=== PATIENT | female | born 1955 | race Caucasian/White ===

== ENCOUNTER → 2016-08-16 | Outpatient (CLI) | payer OTHER ==
[~2016-08-16] MED LIST: CLR10 PO; CYAN100020 SC; HYDR200T5 PO; PRLSR20 PO
--- NOTE | 2016-08-16 12:52 | DIAGNOSTIC IMAGING REPORT ---
CT OF THE NECK WITHOUT CONTRAST CT DOSE: 410.41 mGycm CLINICAL HISTORY: Chronic esophagitis. Sore throat. TECHNIQUE: Axial images of the neck were obtained without IV contrast. COMPARISON STUDY: None. FINDINGS: Visualized portions of the intracranial contents are unremarkable on this unenhanced study. Visualized portions of the sinuses and mastoid air cells are clear. No parotid or submandibular mass is identified. The epiglottis is normal. Evaluation of the neck is suboptimal on this unenhanced exam but no enlarged lymph nodes or cervical masses are identified. No mucosal lesions are identified although these may be occult by CT. No suspicious osseous lesions are present. Few calcified granulomas within the right upper lobe are incidentally noted. There are multiple dental amalgams. IMPRESSION: Unremarkable unenhanced CT of the neck. Electronically signed by: Aditya Ramirez M.D. 08/16/2016 12:50 PM Dictated Date/Time: 08/16/2016 12:43 PM
== END | disposition home or self-care (01) ==
LOC: C.CTS 12:06
PROVIDERS: ATTEND Internal Medicine Pulmonary Disease
DX: J30.9 Allergic rhinitis, unspecified (principal); K22.70 Barrett's esophagus without dysplasia; K21.0 Gastro-esophageal reflux disease with esophagitis; R09.82 Postnasal drip; J02.9 Acute pharyngitis, unspecified

== ENCOUNTER → 2016-08-16 | Outpatient (CLI) | payer OTHER ==
[2016-08-16 13:15] LABS: BASO % 0.6 %; BASO ABS # 0.05 K/uL (0-0.2); COMPLETE YES; HEMATOCRIT 44.9 % (37-47); IG% 0.1 %; LYMPH % 25.9 %; LYMPH ABS # 2.24 K/uL (1.2-3.4); MEAN CELL VOLUME 97.8 fL (80-100); MEAN CORPUSCULAR HEMOGLOBIN 34.2 pg (25-34); MONO % 10.3 %; NEUT % 61.1 %; PLATELET COUNT 274 K/uL (130-400); RED BLOOD COUNT 4.59 M/uL (4.2-5.4); WHITE BLOOD COUNT 8.65 K/uL (4.8-10.8)
[2016-08-16 13:46] LABS: ALT/SGPT 31 U/L (12-78); AST/SGOT 33 U/L (15-37); BLOOD UREA NITROGEN 12 mg/dl (7-18); CALCIUM 9.7 mg/dl (8.5-10.1); CARBON DIOXIDE 26 mmol/L (21-32); CHLORIDE 104 mmol/L (98-107); GLUCOSE 80 mg/dl (70-99); POTASSIUM 3.7 mmol/L (3.5-5.1); SODIUM 140 mmol/L (136-145)
[2016-08-16 13:57] LABS: ALB/GLOB RATIO 1.3 (0.9-2); ALKALINE PHOSPHATASE 116 U/L (45-117)
== END | disposition home or self-care (01) ==
LOC: C.LAB1850 11:33
PROVIDERS: ATTEND Internal Medicine Pulmonary Disease
DX: Z11.59 Encounter for screening for other viral diseases (principal); J30.9 Allergic rhinitis, unspecified; K21.0 Gastro-esophageal reflux disease with esophagitis; R09.82 Postnasal drip; J02.9 Acute pharyngitis, unspecified

== ENCOUNTER → 2016-12-19 | Outpatient (CLI) | payer OTHER ==
--- NOTE | 2016-12-19 13:39 | MAMMOGRAPHY REPORT ---
BILATERAL DIGITAL SCREENING MAMMOGRAM WITH CAD: 12/19/2016 CLINICAL HISTORY: Routine screening. Patient has no complaints. TECHNIQUE: Current study was also evaluated with a Computer Aided Detection (CAD) system. Bilateral CC and MLO views were obtained. COMPARISON: Comparison is made to exams dated: 12/18/2015 mammogram, 12/14/2014 ultrasound, 12/14/2014 mammogram, 12/06/2014 mammogram, 08/02/2013 mammogram, and 07/30/2012 mammogram - [facility] nter. BREAST COMPOSITION: There are scattered areas of fibroglandular density in both breasts. FINDINGS: No suspicious masses, calcifications, or areas of architectural distortion are noted in ei ther breast. There has been no significant interval change compared to prior exams. Bilateral asymme tries and bilateral benign-appearing calcifications are not significantly changed. IMPRESSION: ACR BI-RADS CATEGORY 2: BENIGN There is no mammographic evidence of malignancy. A 1 year screening mammogram is recommended. The pa tient will receive written notification of the results. Approximately 10% of breast cancers are not detected with mammography. A negative mammographic report should not delay biopsy if a clinically suggestive mass is present. Gay Menezes M.D. /:12/19/2016 12:19:29 Product Development Intern: Khushi Lim, [facility] letter sent: Normal 1/2 BI-RADS Code: ACR BI-RADS Category 2: Benign
== END | disposition home or self-care (01) ==
LOC: C.MAMM 09:48
PROVIDERS: ATTEND Obstetrics & Gynecology
DX: Z12.31 Encounter for screening mammogram for malignant neoplasm of breast (principal)

== ENCOUNTER → 2017-08-26 | Day surgery (SDC) | payer OTHER ==
[2017-08-18 13:00] VITALS: Ht 167.6 cm; Wt 77.3 kg
[~2017-08-26] VITALS: Ht 167.6 cm; Wt 77.3 kg
[~2017-08-26] MED LIST changes: +CHOL20009 PO; -HYDR200T5 PO; +LIDOCAINE HCL 2% 2 ML VIAL (20MG/ML) ONE; +PROPOFOL IV EMULSION 10 MG/ML 20 ML VIAL IV ONE; +RANI1TAB75 PO; +SODIUM CHLORIDE 0.9% 500ML 500 ML IV ONE
--- NOTE | 2017-08-26 08:22 | Endo History and Physical ---
History & Physical Date of Service: Aug 26, 2017. Chief Complaint: Nausea and Abdominal pain Referring Physician: Dr. Mays History of Present Illness 62 yo CF who presents for EGD secondary to nausea and abdominal pain. Past Medical History Reflux, Cancer, High Cholesterol, Liver Disease Past Surgical History Hx Cardiac Surgery: No Hx Internal Defibrillator: No Hx Pacemaker: No Hx Abdominal Surgery: Yes (LAP SOFIA, D&C) Hx of Implantable Prosthesis: No Hx Post-Op Nausea and Vomiting: No Hx Cancer Surgery: Yes (TOBY BSO) Hx Thoracic Surgery: No Hx Orthopedic: Yes (L RCR) Hx Urinary Tract Surgery: No Family History Colon CA Social History Smoking Status: Never Smoker Hx Substance Use: No Hx Alcohol Use: Yes (RARELY) Allergies Coded Allergies: Penicillins (Verified Allergy, Unknown, RASH/ LONG TIME AGO, 08/26/17) Current Medications Reported Home Medications Medications Dose Route/Sig Max Daily Dose Days Date Category Vitamin D (Cholecalciferol) 2,000 Unit Tab 2 Tab PO QAM 08/18/17 Reported Ranitidine 75 (Ranitidine HCl) 75 Mg Tab 1 Tab PO BID PRN 08/18/17 Reported Claritin (Loratadine) 10 Mg Tab 10 Mg PO QAM 01/10/16 Reported Prilosec (Omeprazole) 20 Mg Capcr 20 Mg PO BID 03/02/15 Reported Vitamin B12 (Cyanocobalamin) 1,000 Mcg Tab 1 Dose SC MONTHLY 02/14/14 Reported Vital Signs Weight (Kilograms): 77.27 Height (Feet): 5 Height (Inches): 6 Physical Exam General Appearance: WD/WN, no apparent distress Respiratory/Chest: Auscultation: breath sounds normal Cardiovascular: Heart Auscultation: RRR Abdomen: Bowel Sounds: normal Inspection & Palpation: soft, non-distended, no tenderness, guarding & rebound Assessment and Plan Assessment: 62 yo CF who presents for EGD secondary to nausea and abdominal pain. Plan: Proceed with EGD.
--- NOTE | 2017-08-26 09:12 | Discharge Instructions ---
Endoscopy Patient Instructions Date / Procedure(s) Performed Aug 26, 2017. EGD Allergy Information Coded Allergies: Penicillins (Verified Allergy, Unknown, RASH/ LONG TIME AGO, 08/26/17) Discharge Date / Findings Aug 26, 2017. Gastritis s/p biopsies Hiatal hernia Medication Instructions 1) Stop Omeprazole 2) Start Pantoprazole 40mg by mouth each morning 1/2 hour prior to breakfast. 3) Start Ranitidine 150mg by mouth each evening prior to bedtime. 4) OK to resume all medications today as prescribed Reported Home Medications Medications Dose Route/Sig Max Daily Dose Days Date Category Vitamin D (Cholecalciferol) 2,000 Unit Tab 2 Tab PO QAM 08/18/17 Reported Ranitidine 75 (Ranitidine HCl) 75 Mg Tab 1 Tab PO BID PRN 08/18/17 Reported Claritin (Loratadine) 10 Mg Tab 10 Mg PO QAM 01/10/16 Reported Prilosec (Omeprazole) 20 Mg Capcr 20 Mg PO BID 03/02/15 Reported Vitamin B12 (Cyanocobalamin) 1,000 Mcg Tab 1 Dose SC MONTHLY 02/14/14 Reported Provider Instructions Activity Restrictions - No exercising or heavy lifting for 24 hours. - Do not drink alcohol the day of the procedure. - Do not drive a car or operate machinery until the day after the procedure. - Do not make any important decisions or sign important papers in 24 hours after the procedure. Following Day: - Return to full activity which may include returning to work/school. Diet Start your diet with liquids and light foods (jello, soup, juice, toast). Then eat your usual diet if not nauseated. Treatment For Common After Affects For mild abdominal pain, bloating, or excessive gas: - Rest - Eat lightly - Lie on right side Follow-Up Information Follow-up with Dr Mays as scheduled Anesthesia Information What You Should Know You have had a procedure that required some medicine to reduce anxiety and discomfort. This treatment is called moderate sedation. After receiving the treatment, you may be sleepy, but you will be able to breathe on your own. The effects of the treatment may last for several hours. Follow these instructions along with Activity/Diet recommendations noted above: * Do NOT do anything where dizziness or clumsiness would be dangerous. * Rest quietly at home today, then you can be up and about tomorrow. * Have a responsible person stay with you the rest of today. * You may have had an I.V. today. If so, you may take the dressing off later today. Recommendations Call your doctor if: * Trouble breathing * Continuous vomiting for more than 24 hours * Temperature above 101 degrees * Severe abdominal pain or bloating * Pain not relieved by pain medicine ordered * There is increased drainage or redness from any incision * A large amount of rectal bleeding greater than 2-3 tablespoons. (If you had a polyp/s removed or have hemorrhoids, a small amount of blood - from the rectum is to be expected.) * You have any unanswered questions or concerns. IN THE EVENT OF A SERIOUS EMERGENCY, GO TO THE NEAREST EMERGENCY ROOM Your discharge instructions were prepared by provider Ethan Rossi. Patient Instructions Signature Page Susanna Beckwith Patient (or Guardian) Signature/Date: I have read and understand the instructions given to me by my caregivers. Caregiver/RN/Doctor Signature/Date: The above-named patient and/or guardian has received patient instructions on this date. + Original Patient Signature Page (only) stays with chart. Please make copy for patient.
--- NOTE | 2017-08-26 09:19 | GI REPORT ---
Procedure Date: 08/26/2017 8:24 AM Procedure: Upper GI endoscopy Indications: Epigastric abdominal pain, Nausea Medicines: Monitored Anesthesia Care Complications: No immediate complications. Estimated Blood Loss: Estimated blood loss: none. Procedure: Pre-Anesthesia Assessment: - Prior to the procedure, a History and Physical was performed, and patient medications and allergies were reviewed. The patient's tolerance of previous anesthesia was also reviewed. The risks and benefits of the procedure and the sedation options and risks were discussed with the patient. All questions were answered, and informed consent was obtained. Prior Anticoagulants: The patient has taken no previous anticoagulant or antiplatelet agents. ASA Grade Assessment: II - A patient with mild systemic disease. After reviewing the risks and benefits, the patient was deemed in satisfactory condition to undergo the procedure. After obtaining informed consent, the endoscope was passed under direct vision. Throughout the procedure, the patient's blood pressure, pulse, and oxygen saturations were monitored continuously. The Scope was introduced through the mouth, and advanced to the second part of duodenum. The upper GI endoscopy was accomplished without difficulty. The patient tolerated the procedure well. Findings: The esophagus was normal. A small hiatal hernia was present. Localized mild inflammation characterized by erythema was found in the gastric antrum. Biopsies were taken with a cold forceps for histology. The examined duodenum was normal. Impression: - Normal esophagus. - Small hiatal hernia. - Gastritis. Biopsied. - Normal examined duodenum. Recommendation: - Resume previous diet. - Use Protonix (pantoprazole) 40 mg PO daily. - Start Ranitidine 150mg by mouth at bedtime. - Await pathology results. - Return to primary care physician as previously scheduled. Ethan Rossi DO 08/26/2017 9:18:53 AM This report has been signed electronically. Note Initiated On: 08/26/2017 8:24 AM I attest to the content of the Intraoperative Record and orders documented therein, exceptions below
[2017-08-26 09:43] VITALS: BP 139/74; PULSE 89; O2SAT 98
--- NOTE | 2017-08-26 10:06 | Anesthesiology Progress Note ---
Anesthesia Post Op Note Date & Time Aug 26, 2017 at 10:05 Vital Signs Vital Signs Past 12 Hours Date Time Temp Pulse Resp B/P (MAP) Pulse Ox O2 Delivery O2 Flow Rate FiO2 08/26/17 09:43 89 18 139/74 (95) 98 Room Air 08/26/17 09:28 93 18 139/78 (98) 98 Room Air 08/26/17 09:13 95 18 126/81 (96) 100 Room Air 08/26/17 08:24 36.3 100 18 153/85 (107) 98 Room Air Notes Mental Status: alert / awake / arousable, participated in evaluation Pt Amnestic to Procedure: Yes Nausea / Vomiting: adequately controlled Pain: adequately controlled Airway Patency, RR, SpO2: stable & adequate BP & HR: stable & adequate Hydration State: stable & adequate Anesthetic Complications: no major complications apparent
== END | disposition home or self-care (01) ==
LOC: C.GI 07:54
PROVIDERS: ATTEND Internal Medicine
DX: K29.60 Other gastritis without bleeding (principal); K44.9 Diaphragmatic hernia without obstruction or gangrene; K21.9 Gastro-esophageal reflux disease without esophagitis; Z88.0 Allergy status to penicillin; Z90.49 Acquired absence of other specified parts of digestive tract; Z90.710 Acquired absence of both cervix and uterus; Z90.79 Acquired absence of other genital organ(s); Z80.0 Family history of malignant neoplasm of digestive organs

== ENCOUNTER → 2018-01-20 | Outpatient (CLI) | payer OTHER ==
[~2018-01-20] MED LIST changes: -LIDOCAINE HCL 2% 2 ML VIAL (20MG/ML) ONE; -PROPOFOL IV EMULSION 10 MG/ML 20 ML VIAL IV ONE; -SODIUM CHLORIDE 0.9% 500ML 500 ML IV ONE
[2018-01-20 12:19] LABS: BASO % 0.5 %; BASO ABS # 0.04 K/uL (0-0.2); EOS % 3.5 %; EOS ABS # 0.29 K/uL (0-0.5); HEMATOCRIT 46.2 % (37-47); HEMOGLOBIN 15.4 g/dL (12.0-16.0); IG# 0.03 K/uL (0.00-0.02); LYMPH % 24.8 %; LYMPH ABS # 2.08 K/uL (1.2-3.4); MEAN CELL VOLUME 97.7 fL (80-100); MEAN CORPUSCULAR HEMOGLOBIN 32.6 pg (25-34); MEAN CORPUSCULAR HGB CONC 33.3 g/dl (32-36); MEAN PLATELET VOLUME 10.3 fL (7.4-10.4); MONO ABS # 0.59 K/uL (0.11-0.59); NEUT % 63.8 %; NEUT ABS # 5.37 K/uL (1.4-6.5); PLATELET COUNT 275 K/uL (130-400); RED CELL DISTRIBUTION WIDTH CV 13.4 % (11.5-14.5); RED CELL DISTRIBUTION WIDTH SD 47.8 fL (36.4-46.3)
[2018-01-20 12:39] LABS: ALBUMIN 4.3 gm/dl (3.4-5.0); ALKALINE PHOSPHATASE 111 U/L (45-117); ALT/SGPT 31 U/L (12-78); AST/SGOT 35 U/L (15-37); BLOOD UREA NITROGEN 15 mg/dl (7-18); CALCIUM 9.5 mg/dl (8.5-10.1); CARBON DIOXIDE 26 mmol/L (21-32); CREATININE 0.95 mg/dl (0.60-1.20); GLUCOSE 92 mg/dl (70-99); POTASSIUM 3.8 mmol/L (3.5-5.1); SODIUM 139 mmol/L (136-145)
== END | disposition home or self-care (01) ==
LOC: C.LAB1850 10:03
PROVIDERS: ATTEND Surgery
DX: C50.511 Malignant neoplasm of lower-outer quadrant of right female breast (principal); Z17.0 Estrogen receptor positive status [ER+]

== ENCOUNTER → 2018-01-20 | Outpatient (CLI) | payer OTHER ==
--- NOTE | 2018-01-20 11:36 | DIAGNOSTIC IMAGING REPORT ---
CHEST 2 VIEWS ROUTINE CLINICAL HISTORY: C50.511,Z17.0 PREOPERATIVE CHEST COMPARISON STUDY: 02/27/2014 FINDINGS: The cardiac and mediastinal contours are normal. There is no evidence of focal pulmonary consolidation. There is no evidence of failure. No pleural effusions are visualized.[ Again evident is a calcified right upper lung zone granuloma. There has been interval removal of the left-sided A-Port catheter. IMPRESSION: No active disease in the chest. Electronically signed by: Paolo Figueroa M.D. 01/20/2018 11:34 AM Dictated Date/Time: 01/20/2018 11:34 AM
== END | disposition home or self-care (01) ==
LOC: C.RAD 10:42
PROVIDERS: ATTEND Surgery
DX: C50.511 Malignant neoplasm of lower-outer quadrant of right female breast (principal); Z17.0 Estrogen receptor positive status [ER+]; Z88.0 Allergy status to penicillin